=== PATIENT | female | born 1945 | race Caucasian/White ===

== ENCOUNTER 2019-03-06 12:23 | Emergency (ER) | payer MEDICARE ==
--- NOTE | 2019-03-06 13:11 | ER Document Report ---
ED Medical Screen (RME) - General Chief Complaint: Facial Injury Stated Complaint: FALL INJURY Time Seen by Provider: 03/06/19 13:03 Notes: Patient is 73-year-old female who presents to the emergency department after a fall. She was bringing her in to the hospital for an x-ray and ended up tripping over her right toe and fell and hit her head right outside the lobby. Patient denies any blurred vision, dizziness, or any other symptoms at this time. Patient states that she only takes an 81 mg aspirin. Denies any blood thinner use. Exam: Very small 0.8 cm laceration noted just below right eyebrow. Ecchymosis and edema noted to area around right eye. I have greeted and performed a rapid initial assessment of this patient. A comprehensive ED assessment and evaluation of the patient, analysis of test results and completion of medical decision making process will be conducted by an additional ED providers. - Related Data Allergies/Adverse Reactions: No Known Allergies Allergy (Verified 03/06/19 13:01) Physical Exam - Vital signs Vitals: Temp Pulse Resp BP Pulse Ox 98.5 F 57 L 20 133/74 H 97 03/06/19 13:02 03/06/19 13:02 03/06/19 13:02 03/06/19 13:02 03/06/19 13:02 Course - Vital Signs Vital signs: Temp Pulse Resp BP Pulse Ox 98.5 F 57 L 20 133/74 H 97 03/06/19 13:02 03/06/19 13:02 03/06/19 13:02 03/06/19 13:02 03/06/19 13:02
--- NOTE | 2019-03-06 13:55 | RADIOLOGY REPORT (SQ) ---
EXAM DESCRIPTION: CT HEAD WITHOUT COMPLETED DATE/TIME: 03/06/2019 1:45 pm REASON FOR STUDY: fall; head trauma COMPARISON: None. TECHNIQUE: Axial images acquired through the brain without intravenous contrast. Images reviewed wi th bone, brain and subdural windows. Additional sagittal and coronal reconstructions were generated. Images stored on PACS. All CT scanners at this facility use dose modulation, iterative reconstruction, and/or weight based d osing when appropriate to reduce radiation dose to as low as reasonably achievable (ALARA). [facility]: Dose Right [facility]: CareDose [facility]: Dose Right [facility]: Teradose 4D [facility]: [employer] RADIATION DOSE: CT Rad equipment meets quality standard of care and radiation dose reduction techniq ues were employed. CTDIvol: 53.2 mGy. DLP: 1070 mGy-cm. LIMITATIONS: None. FINDINGS: Extracranial supraorbital hematoma on the right. There is no associated fracture. There is no acute intracranial hemorrhage, vascular territorial infarct, extra-axial fluid collection , mass effect or midline shift. There is no effacement of the cerebral sulci or basal subarachnoid c isterns. The charles-white matter differentiation is preserved. The caliber the ventricles is concorda nt with the degree of sulcation. The orbits and globes are intact. The left sphenoid sinus is opacified. The other paranasal sinuses are clear. There is no paranasal sinus air-fluid level. There is no calvarial fracture. IMPRESSION: 1. Right sided extracranial supraorbital hematoma. There is no associated fracture. 2. No acute intracranial abnormality. 3. Opacification of the left sphenoid sinus. Correlate with clinical findings to exclude an acute s inusitis. EVIDENCE OF ACUTE STROKE: NO. COMMENT: Quality ID # [id number]: Final reports with documentation of one or more dose reduction techniques (e.g., Automated exposure control, adjustment of the mA and/or kV according to patient size, use of iterative reconstruction technique) TECHNICAL DOCUMENTATION: JOB ID: [id number] [employer]- All Rights Reserved Reading location - IP/workstation name: [email or web address]
--- NOTE | 2019-03-06 13:59 | RADIOLOGY REPORT (SQ) ---
EXAM DESCRIPTION: CT CERVICAL SPINE WITHOUT COMPLETED DATE/TIME: 03/06/2019 1:45 pm REASON FOR STUDY: fall; neck pain COMPARISON: None. TECHNIQUE: Axial images acquired through the cervical spine without intravenous contrast. Images re viewed with lung, soft tissue and bone windows. Reconstructed coronal and sagittal MPR images review ed. Images stored on PACS. All CT scanners at this facility use dose modulation, iterative reconstruction, and/or weight based d osing when appropriate to reduce radiation dose to as low as reasonably achievable (ALARA). [facility]: Dose Right [facility]: CareDose [facility]: Dose Right [facility]: Teradose 4D [facility]: [employer] RADIATION DOSE: CT Rad equipment meets quality standard of care and radiation dose reduction techniq ues were employed. CTDIvol: 18.9 mGy. DLP: 321 mGy-cm. mGy. LIMITATIONS: None. FINDINGS: ALIGNMENT: There is grade 1 anterolisthesis of C4 relative to C5. There is no craniocervi devora or atlantoaxial dissociation. MINERALIZATION: Normal. VERTEBRAL BODIES: The cervical vertebral body heights are preserved. There is no fracture. DISCS: The C5-C6, C6-C7 and C7-T1 intervertebral disc spaces are narrowed. At C5-C6, C6-C7 and C7-T1 there are posterior disc osteophyte complexes eccentric to the right that encroach on the ventral as pect of the thecal sac. FACETS, LATERAL MASSES, POSTERIOR ELEMENTS: At C3-C4 on the right and C5-C6 bilaterally there is mode rate to severe osteophytic foraminal stenosis due to a combination of facet joint arthropathy and unc overtebral hypertrophy. HARDWARE: None in the spine. VISUALIZED RIBS: No fractures. LUNG APICES AND SOFT TISSUES: No acute findings. OTHER: No other finding. IMPRESSION: No acute fracture or malalignment of the cervical spine. TECHNICAL DOCUMENTATION: JOB ID: [id number] Quality ID # [id number]: Final reports with documentation of one or more dose reduction techniques (e.g., Au tomated exposure control, adjustment of the mA and/or kV according to patient size, use of iterative reconstruction technique) 2010 [employer]- All Rights Reserved Reading location - IP[facility]workstation name: [email or web address]
[2019-03-06] MEDS ORDERED: DIPH/PERTUSS(ACELL)/TETANUS VAC/PF 0.5 ML SYR (>=10YO) IM ONE (15:19)
[2019-03-06] MEDS ORDERED: LIDOCAINE 4%/TETRACAINE 0.5%/EPI 0.18% 5 ML TOPICAL SOLN TOP ONE (15:40)
--- NOTE | 2019-03-06 16:26 | ER Document Report ---
ED General - General Chief Complaint: Facial Injury Stated Complaint: FALL INJURY Time Seen by Provider: 03/06/19 13:03 Primary Care Provider: SIOBHAN JONES PA-C [Primary Care Provider] - Follow up as needed TRAVEL OUTSIDE OF THE [place] IN LAST 30 DAYS: No - HPI Patient complains to provider of: fall Onset: This morning Onset/Duration: Sudden Quality of pain: Achy Severity: Mild Pain Level: 1 Context: Delightful 73 year old female lost balance and fell coming to hospital a short time ago. Struck her face on the ground with her glasses on. Laceration to right supraorbital region and sts around right eye. No other injuries. No loc. No blood thinners. Exacerbated by: Denies Relieved by: Denies - Related Data Allergies/Adverse Reactions: No Known Allergies Allergy (Verified 03/06/19 13:01) Past Medical History - Social History Smoking Status: Never Smoker Family History: Reviewed & Not Pertinent Patient has suicidal ideation: No Patient has homicidal ideation: No Review of Systems - Review of Systems Constitutional: No symptoms reported EENT: No symptoms reported Cardiovascular: No symptoms reported Respiratory: No symptoms reported Gastrointestinal: No symptoms reported Genitourinary: No symptoms reported Female Genitourinary: No symptoms reported Musculoskeletal: No symptoms reported Skin: No symptoms reported Hematologic/Lymphatic: No symptoms reported Neurological/Psychological: No symptoms reported Physical Exam - Vital signs Vitals: Temp Pulse Resp BP Pulse Ox 98.5 F 57 L 20 133/74 H 97 03/06/19 13:02 03/06/19 13:02 03/06/19 13:02 03/06/19 13:02 03/06/19 13:02 Interpretation: Normal - General General appearance: Appears well, Alert - HEENT Head: Normocephalic, Atraumatic Eyes: Normal, Periorbital ecchymosis, Periorbital edema, Other - moderate sts around right eye. Small approximately 1 cm laceration with bleeding controlled. Pupils: PERRL - Respiratory Respiratory status: No respiratory distress Chest status: Nontender Breath sounds: Normal Chest palpation: Normal - Cardiovascular Rhythm: Regular Heart sounds: Normal auscultation Murmur: No - Abdominal Inspection: Normal Distension: No distension Bowel sounds: Normal Tenderness: Nontender Organomegaly: No organomegaly - Back Back: Normal, Nontender - Extremities General upper extremity: Normal inspection, Nontender, Normal color, Normal ROM, Normal temperature General lower extremity: Normal inspection, Nontender, Normal color, Normal ROM, Normal temperature, Normal weight bearing. No: Ross's sign - Neurological Neuro grossly intact: Yes Cognition: Normal Orientation: AAOx4 Jason Coma Scale Eye Opening: Spontaneous [place] Coma Scale Verbal: Oriented Jason Coma Scale Motor: Obeys Commands Jason Coma Scale Total: 15 Speech: Normal Motor strength normal: LUE, RUE, LLE, RLE Sensory: Normal - Psychological Associated symptoms: Normal affect, Normal mood - Skin Skin Temperature: Warm Skin Moisture: Dry Skin Color: Normal Course - Re-evaluation Re-evalutation: 03/07/19 01:32 MDM 73 year old with fall and facial injury. Rather impressive sts around right eye with small laceration. No occular injury. Vision not affected. Sent for ct due to hitting hard surface and likely frail bridging veins in skull. CT reports are reassuring. Antibiotics given for what appears to be left sided sphenoid sinus disease. - Vital Signs Vital signs: Temp Pulse Resp BP Pulse Ox 98.1 F 62 16 136/73 H 100 03/06/19 16:32 03/06/19 16:32 03/06/19 16:32 03/06/19 16:32 03/06/19 16:32 - Diagnostic Test Radiology reviewed: Reports reviewed Procedures - Laceration/Wound Repair Right Face Time completed: 16:00 Wound length (cm): 1 Wound's Depth, Shape: Superficial Anesthetic type: Other - LET Wound explored: Clean Wound Repaired With: Sutures Suture Size/Type: 6:0, Ethilon Number of Sutures: 2 Layer Closure?: No Discharge - Discharge Clinical Impression: Laceration Fall Qualifiers: Encounter type: initial encounter Qualified Code(s): W19.XXXA - Unspecified fall, initial encounter Disposition: HOME, SELF-CARE Instructions: Laceration Care ([facility]), Tetanus Immunization Given ([facility]) Additional Instructions: Keep wound clean and dry. Take tylenol for pain. Use ice to your face. Please return here for any problems or any concerns. Sutures out Monday03/09/19. Prescriptions: Cephalexin Monohydrate [Keflex 500 mg Capsule] 500 mg PO TID #15 capsule Referrals: SIOBHAN JONES PA-C [Primary Care Provider] - Follow up as needed
[2019-03-06 16:33] VITALS: BP 136/73
== END 2019-03-06 16:33 | disposition home or self-care (01) ==
LOC: ER 12:23
DX: S01.111A Laceration without foreign body of right eyelid and periocular area, initial encounter (principal); S09.90XA Unspecified injury of head, initial encounter; W01.10XA Fall on same level from slipping, tripping and stumbling with subsequent striking against unspecified object, initial encounter; Y92.238 Other place in hospital as the place of occurrence of the external cause; Z23 Encounter for immunization; Z79.82 Long term (current) use of aspirin
CPT/HCPCS: 12011; 99283; 90471; 70450; 72125; 90715; J3490

== ENCOUNTER → 2020-02-04 | Outpatient (CLI) | payer MEDICARE ==
--- NOTE | 2020-02-04 11:52 | WOMENS IMAGING REPORT ---
EXAM DESCRIPTION: BONE DENSITY HIP/SPINE IMAGES COMPLETED DATE/TIME: 02/04/2020 10:54 am REASON FOR STUDY: Z78.0 ASYMPTOMATIC MENOPAUSAL STATE Z78.0 ASYMPTOMATIC MENOPAUSAL STATE COMPARISON: 2012 TECHNIQUE: Dual-Energy X-ray Absorptiometry (DEXA) of the AP Spine and Hip. LIMITATIONS: None. FINDINGS: LUMBAR SPINE: The bone mineral density (BMD) measured from L1-L4 in the AP projection correlates with a T-score of 0.3, which is normal as defined by the World Health Organization. BMD Change vs Baseline: N/A HIP: The bone mineral density (BMD) measured in the left hip correlates with a T-score of -0.7, which is n ormal as defined by the World Health Organization. BMD Change vs Baseline: N/A 10 year Fracture Risk Assessment: Major Osteoporotic Fracture: Not available. Hip Fracture: Not available. IMPRESSION: 1. LUMBAR SPINE WHO CLASSIFICATION: NORMAL. 2. HIP WHO CLASSIFICATION: NORMAL. OVERALL ASSESSMENT: WHO CLASSIFICATION: NORMAL. COMMENT: The World Health Organization defines low BMD as follows: T-score: Normal: At or above -1.0 Osteopenia: Between -1.0 and -2.5 Osteoporosis: At or below -2.5 without fractures Established osteoporosis: At or below -2.5 with fractures In general, you may wish to consider: Diagnosis Treatment Follow-up DEXA Normal BMD Prevention 2-3 years Osteopenia Prevention/Therapy 1-2 years Osteoporosis Therapy Yearly TECHNICAL DOCUMENTATION: JOB ID: [id number] 2010 [employer]- All Rights Reserved Reading location - IP/workstation name: [email or web address]
== END ==
LOC: WI 10:34
PROVIDERS: ATTEND Physician Assistant
DX: Z78.0 Asymptomatic menopausal state (principal)
CPT/HCPCS: 77080